=== PATIENT | female | born 1975 | race Two or more races ===

== ENCOUNTER 2019-01-11 09:55 | Emergency (ER) | payer BC ==
[~2019-01-11] VITALS: Ht 170.2 cm; Wt 97.5 kg
[2019-01-11 10:34] LABS: Basophils # (auto) 0 uL; Basophils % (auto) 0.1 % (0.0-2.0); Eosinophils # (auto) 0 uL; Hematocrit 36.2 % (36.0-46.0); Hemoglobin 12.1 g/dL (12.2-16.2); Lymphocytes # (auto) 0.4 uL; Lymphocytes % (auto) 4.4 % (10.0-50.0); Mean Corpuscular Hemoglobin 27.2 pg (28.0-32.0); Mean Corpuscular Hgb Conc. 33.4 g/dL (32.0-36.0); Mean Corpuscular Volume 81.6 fL (80.0-100.0); Monocytes # (auto) 0.5 uL; Monocytes % (auto) 6.1 % (0.0-12.0); Neutrophils # (auto) 7.1 uL; Neutrophils % (auto) 89.4 % (37.0-80.0); Platelet Count (auto) 264 10^3/uL (140-450); Red Blood Cells 4.44 10^6/uL (4.0-5.20); Red Cell Distribution Width 15.1 % (11.8-14.3)
[2019-01-11 10:45] LABS: Albumin 3.6 g/dL (3.4-5.0); Anion Gap 15 (5-15); Blood Urea Nitrogen 11 mg/dL (7-18); Calcium 9.6 mg/dL (8.5-10.1); Carbon Dioxide 21 mmol/L (21-32); Chloride 98 mmol/L (98-107); Glucose 335 mg/dL (74-106); Potassium 3.5 mmol/L (3.5-5.1); Sodium 134 mmol/L (136-145)
[2019-01-11 10:50] LABS: Urine Bacteria FEW /hpf (None Seen); Urine Blood 2+ /uL (Negative); Urine Hyaline Cast FEW /lpf (0 - 2); Urine Mucus FEW (None Seen); Urine Specific Gravity 1.028 (1.001-1.035); Urine WBC 127 /hpf (0 - 5)
[2019-01-11 10:53] LABS: Alanine Aminotransferase 20 U/L (13-56); Alkaline Phosphatase 89 U/L (45-117); Aspartate Aminotransferase 14 U/L (15-37); BUN/Creatinine Ratio 11.6; Bilirubin, Total 0.4 mg/dL (0.2-1.0); GFR African American 82 mL/min; GFR Non-African American 68 mL/min; Total Protein 9.2 g/dL (6.4-8.2)
[2019-01-11] MEDS ORDERED: cefTRIAXone 1GM/50ML D5W 50 ML IV ONE (13:00)
[2019-01-11] MEDS ORDERED: SODIUM CHLORIDE 0.9% 1,000 ML IV ONE ×2 (13:00→13:15)
[2019-01-11] MEDS ORDERED: KETOROLAC TROMETH 30 MG/ML 1ML VIAL IV ONE (13:00)
[2019-01-11] MEDS ORDERED: PROMETHAZINE HCL 25 MG/ML 1ML IV ONE (13:00)
[2019-01-11] MEDS ORDERED: FAMOTIDINE (10MG/ML) 2ML VL IV ONE (13:00)
[2019-01-11] MEDS ORDERED: ONDANSETRON HCL 4 MG/2 ML VIAL IV ONE (14:30)
[2019-01-11] MEDS ORDERED: InsuLIN REG 1unit/0.01ml Soln (100units/ml) IV ONE (14:45)
[2019-01-11] MEDS ORDERED: cloNIDine HCL 0.1 MG TAB PO ONE (14:45)
[2019-01-11] MEDS ORDERED: POTASSIUM CHL 20 Meq TABLET PO ONE (14:45)
[2019-01-11 16:37] VITALS: BP 194/97
== END 2019-01-11 16:53 | disposition left against medical advice (07) ==
LOC: ER 09:55
DX: K52.9 Noninfective gastroenteritis and colitis, unspecified (principal); N39.0 Urinary tract infection, site not specified; E11.65 Type 2 diabetes mellitus with hyperglycemia; I10 Essential (primary) hypertension; Z53.29 Procedure and treatment not carried out because of patient's decision for other reasons; Z88.2 Allergy status to sulfonamides
CPT/HCPCS: 36415; 80053; 81001; 82962; 84484; 85025; 96365; 96375; 99283; J0696; J1815; J1885; J2405; J2550; J3490; J7030

== ENCOUNTER 2019-01-12 23:36 | Inpatient (IN) | payer BC ==
[~2019-01-12] VITALS: Ht 170.2 cm; Wt 94.1 kg
[2019-01-13] VITALS (8 sets, daily range): BP systolic 118–187; BP diastolic 76–98
[2019-01-13] MEDS ORDERED: cloNIDine HCL 0.1 MG TAB PO ONE ×2 (00:45→02:45)
[2019-01-13] MEDS ORDERED: ONDANSETRON HCL 4 MG/2 ML VIAL IV ONE ×2 (02:45→06:00)
[2019-01-13] MEDS ORDERED: MECLIZINE HCL 25 MG TAB PO ONE (03:45)
[2019-01-13 04:37] LABS: Basophils # (auto) 0 uL; Basophils % (auto) 0.4 % (0.0-2.0); Eosinophils # (auto) 0 uL; Eosinophils % (auto) 0.1 % (0.0-7.0); Hematocrit 36.8 % (36.0-46.0); Hemoglobin 12.4 g/dL (12.2-16.2); Lymphocytes # (auto) 0.8 uL; Lymphocytes % (auto) 11.9 % (10.0-50.0); Mean Corpuscular Hemoglobin 27.2 pg (28.0-32.0); Mean Corpuscular Hgb Conc. 33.6 g/dL (32.0-36.0); Monocytes # (auto) 0.9 uL; Monocytes % (auto) 13.3 % (0.0-12.0); Neutrophils # (auto) 4.9 uL; Neutrophils % (auto) 74.3 % (37.0-80.0); Platelet Count (auto) 287 10^3/uL (140-450); Red Blood Cells 4.55 10^6/uL (4.0-5.20); Red Cell Distribution Width 14.7 % (11.8-14.3); White Blood Cell 6.5 10^3/uL (4.4-10.8)
[2019-01-13 04:56] LABS: Albumin 3.2 g/dL (3.4-5.0); Calcium 9.3 mg/dL (8.5-10.1); Potassium 3.5 mmol/L (3.5-5.1)
[2019-01-13 04:59] LABS: Bilirubin, Total 0.4 mg/dL (0.2-1.0); Total Protein 8.7 g/dL (6.4-8.2)
[2019-01-13] MEDS ORDERED: ENALAPRILAT 1.25 MG/ML-1ML VIAL IV ONE (05:45)
[2019-01-13] MEDS ORDERED: traMADol HCL 50 MG TAB PO PRN (06:30)
[2019-01-13] MEDS ORDERED: MORPHINE SULF INJ 2 MG/ML SYRINGE 1ML IV PRN (06:30)
[2019-01-13] MEDS ORDERED: DOCUSATE SOD 100 MG CAP PO PRN (06:30)
[2019-01-13] MEDS ORDERED: ACETAMINOPHEN 500 MG TAB PO PRN (06:30)
[2019-01-13] MEDS ORDERED: DEXTROSE (50%) 50ML SYRG IV PRN (06:30)
[2019-01-13 06:47] LABS: Cholesterol 171 mg/dL (< 200)
[2019-01-13 06:50] LABS: HDL Cholesterol 58 mg/dL (40-59); LDL Cholesterol 91 mg/dL (< 100); Triglycerides 124 mg/dL (< 150)
[2019-01-13] MEDS: InsuLIN REG 1unit/0.01ml Soln (100units/ml) SC SCH ×4 (07:04→21:22)
[2019-01-13] MEDS: ACCU-CHEK COMFORT CURVE STRIP VI SCH ×4 (07:05→21:22)
[2019-01-13 08:17] LABS: Urine Bacteria NONE SEEN /hpf (None Seen); Urine Blood 2+ /uL (Negative); Urine Hyaline Cast FEW /lpf (0 - 2); Urine Mucus FEW (None Seen); Urine Specific Gravity 1.015 (1.001-1.035); Urine WBC 13 /hpf (0 - 5)
--- NOTE | 2019-01-13 09:34 | NUR ---
0805 RECEIVED FROM ed VIA WHEELCHAIR, ALERT AND ORIENTED FOR UNCONTROLLED BP. ORIENTED TO UNIT, CALL LIGHT AND PLAN OF CARE DISCUSSED WITH PATIENT. CURRENTLY BP BETTER. 0930 SEEN AND EXAMINED BY DR DEY, INFORMED PATIENT OF DISCHARGE STATUS. WILL GIVE EDUCATIONAL MATERIAL ON DM AND HTN.
[2019-01-13] MEDS ORDERED: FAMOTIDINE 20 MG TAB PO SCH (10:00)
[2019-01-13] MEDS: ONDANSETRON HCL 4 MG/2 ML VIAL IV PRN (11:45)
[2019-01-13] MEDS: BENAZEPRIL HCL 10 MG TAB PO SCH ×3 (11:54→21:22)
[2019-01-13] MEDS: amLODIPine BESYLATE 5 MG TAB PO SCH (11:55)
--- NOTE | 2019-01-13 11:56 | NUR ---
1140 PATIENT VERY NAUSEOUS AFTER HAVING A BITE, NO EMESIS NOTED. 1145 ZOFRAN GIVEN.
--- NOTE | 2019-01-13 12:40 | NUR ---
EMESIS NOTED, ZOFRAN DID NOT HELP. DR DEY CALLED, LEFT VOICE MESSAGE
--- NOTE | 2019-01-13 13:38 | NUR ---
CALLED DR DEY, PER MD HOLD DISCHARGE, GI CONSULT TO DR SHANICE CLEARY DUE TO N/V, CHANGE PEPCID TO PROTONIX.
[2019-01-13] MEDS: SODIUM CHLORIDE 0.9% 1,000 ML IV SCH (14:32)
[2019-01-13] MEDS: PROMETHAZINE HCL 25 MG/ML 1ML IV PRN ×2 (14:35→18:29)
[2019-01-13 15:32] LABS: INR 0.99 (0.9-1.15)
[2019-01-13] MEDS: hydrALAZINE HCL 20 MG/ML VL IV PRN (17:03)
--- NOTE | 2019-01-13 19:35 | NUR ---
OPENING SHIFT NOTE RECEIVED REPORT FROM DAYSHIFT RN. PATIENT LYING IN BED WITH EYES CLOSED. NO S/S OF DISTRESS OR SOB. PATIENT COMPLAINS OF SEVERE NAUSEA DESPITE BEING ADMINISTERED PHENERGAN, REQUESTING NAUSEA MEDICATION, WILL MEDICATE PER MEDICATION ORDERS. PATIENT A/O X4, AMBULATORY. UPDATED PATIENT ON POC, VERBALIZED UNDERSTANDING. BED LOCKED IN LOW POSITION, CALL LIGHT WITHIN REACH. WILL CONTINUE TO MONITOR PATIENT Q1HR AND PRN.
[2019-01-13] MEDS ORDERED: TEMAZEPAM 15 MG CAP PO ONE (21:00)
[2019-01-14] VITALS (8 sets, daily range): BP systolic 139–166; BP diastolic 77–97
--- NOTE | 2019-01-14 00:05 | NUR ---
IV REMOVAL/INSERTION IV DC'd from right AC with catheter fully intact. Pressure dressing applied to site. Patient tolerated well. IV access obtained, via clean technique by inserting 24 gauge catheter at L Hand after 2 attempts. IV secured properly. No trauma to site. Patient tolerated well.
[2019-01-14] MEDS: SODIUM CHLORIDE 0.9% 1,000 ML IV SCH ×3 (00:16→21:01)
[2019-01-14] MEDS: PROMETHAZINE HCL 25 MG/ML 1ML IV PRN ×2 (00:17→09:21)
[2019-01-14] MEDS: hydrALAZINE HCL 20 MG/ML VL IV PRN ×3 (00:17→16:33)
[2019-01-14] MEDS: ONDANSETRON HCL 4 MG/2 ML VIAL IV PRN (05:25)
[2019-01-14 06:04] LABS: Calcium 9.1 mg/dL (8.5-10.1)
[2019-01-14 06:07] LABS: BUN/Creatinine Ratio 20.7
[2019-01-14] MEDS: InsuLIN REG 1unit/0.01ml Soln (100units/ml) SC SCH ×4 (06:27→21:11)
[2019-01-14] MEDS: ACCU-CHEK COMFORT CURVE STRIP VI SCH ×4 (06:27→21:10)
[2019-01-14] MEDS: PANTOPRAZOLE 40 MG TAB PO SCH (09:23)
[2019-01-14] MEDS: BENAZEPRIL HCL 10 MG TAB PO SCH ×2 (10:53→21:10)
[2019-01-14] MEDS: amLODIPine BESYLATE 5 MG TAB PO SCH (10:53)
[2019-01-14] MEDS: POTASSIUM CHL 20MEQ/100ML 100 ML IV SCH ×3 (10:54→15:21)
--- NOTE | 2019-01-14 16:10 | NUR ---
greenish emesis approximately 200 ml noted. remains nauseated , kept nothing by mouth.
[2019-01-14] MEDS ORDERED: SODIUM CHLORIDE 0.9% 500 ML IV ONE (18:00)
--- NOTE | 2019-01-14 18:26 | NUR ---
PATIENT HAS BEEN TACHY ALL DAY TODAY, ASYMPTOMATIC. RECEIVED 2 DOSES OF PRN HYDRALAZINE FOR SBP > 160. DR DEY FINALLY CALLED DUE TO HEART RATE NOT GOING DOWN. ORDER RECEIVED FOR 500 ML NS BOLUS, CARDIOLOGY CONSULT TO DR LEAL, 2D ECHO AND TRANSFER PATIENT TO TELEMETRY. BOLUS STARTED, PATIENT PLACED ON AUTOMOTIVE LIGHT MECHANIC, SINUS TACH NOTED. WILL CONTINUE TO MONITOR. SCHEDULED FOR EGD TOMORROW, WILL KEEP NPO TONIGHT.
--- NOTE | 2019-01-14 19:45 | NUR ---
OPENING SHIFT NOTE RECEIVED REPORT FROM DAYSHIFT RN. PATIENT LYING IN BED WITH EYES CLOSED. NO S/S OF DISTRESS OR SOB. NO PAIN NOTED OR REPORTED AT THIS TIME. PATIENT A/O X4, AMBULATORY. UPDATED PATIENT ON POC, VERBALIZED UNDERSTANDING. BED LOCKED IN LOW POSITION, CALL LIGHT WITHIN REACH. WILL CONTINUE TO MONITOR PATIENT Q1HR AND PRN.
[2019-01-15] MEDS: hydrALAZINE HCL 20 MG/ML VL IV PRN (04:35)
[2019-01-15 05:06] VITALS: BP 180/95
[2019-01-15] MEDS: SODIUM CHLORIDE 0.9% 1,000 ML IV SCH ×2 (05:53→16:58)
[2019-01-15] MEDS: ACCU-CHEK COMFORT CURVE STRIP VI SCH ×4 (06:21→21:47)
[2019-01-15] MEDS: InsuLIN REG 1unit/0.01ml Soln (100units/ml) SC SCH ×4 (06:22→21:47)
--- NOTE | 2019-01-15 07:30 | NUR ---
Opening Shift Note Assumed care of patient, awake and alert. No S/S of distress/SOB or pain on room air. Instructed on POC and to call for assist PRN, will continue to monitor for changes Q1hr and PRN. Bed in low and locked position, rails up x2, no-slip socks on. NPO status maintained.
[2019-01-15 08:10] LABS: Basophils # (auto) 0 uL; Eosinophils # (auto) 0 uL; Lymphocytes # (auto) 1.3 uL; Red Cell Distribution Width 15.1 % (11.8-14.3)
[2019-01-15 08:12] LABS: Basophils % (auto) 0.5 % (0.0-2.0); Eosinophils % (auto) 0.5 % (0.0-7.0); Hematocrit 35.7 % (36.0-46.0); Hemoglobin 11.6 g/dL (12.2-16.2); Lymphocytes % (auto) 17.5 % (10.0-50.0); Mean Corpuscular Hemoglobin 26.3 pg (28.0-32.0); Mean Corpuscular Hgb Conc. 32.5 g/dL (32.0-36.0); Monocytes # (auto) 0.7 uL; Monocytes % (auto) 9.7 % (0.0-12.0); Neutrophils # (auto) 5.3 uL; Neutrophils % (auto) 71.8 % (37.0-80.0); Platelet Count (auto) 290 10^3/uL (140-450); Red Blood Cells 4.41 10^6/uL (4.0-5.20); White Blood Cell 7.4 10^3/uL (4.4-10.8)
[2019-01-15 08:23] LABS: Albumin 2.7 g/dL (3.4-5.0); Calcium 8.5 mg/dL (8.5-10.1); Potassium 3.2 mmol/L (3.5-5.1)
[2019-01-15 08:29] LABS: BUN/Creatinine Ratio 16.4; Bilirubin, Total 0.3 mg/dL (0.2-1.0); Total Protein 7.3 g/dL (6.4-8.2)
[2019-01-15 09:00] VITALS: BP 146/74
--- NOTE | 2019-01-15 09:00 | NUR ---
DR DEY AT BEDSIDE NEW ORDERS ADDED
[2019-01-15] MEDS: amLODIPine BESYLATE 5 MG TAB PO SCH (09:37)
[2019-01-15] MEDS: POTASSIUM CHL 20MEQ/100ML 100 ML IV SCH ×2 (09:37→14:27)
[2019-01-15] MEDS: BENAZEPRIL HCL 10 MG TAB PO SCH ×2 (09:38→21:46)
[2019-01-15] MEDS: PANTOPRAZOLE 40 MG TAB PO SCH ×2 (10:00→21:46)
--- NOTE | 2019-01-15 10:00 | NUR ---
IV insertion IV access obtained, via clean sterile technique by inserting 22 gauge catheter at left wrist after 2 attempts. IV secured properly. No trauma to site. Patient tolerated well.
--- NOTE | 2019-01-15 11:20 | NUR ---
DR LEAL AT BEDSIDE CARDIOLOGY CONSULT COMPLETED, STARTED PATIENT ON A BETA MAURA, MAY CONTINUE WITH EGD, NO NEED TO WAIT FOR ECHO COMPLETION.
--- NOTE | 2019-01-15 11:34 | NUR ---
Nutrition Assessment Notes Please see attached link for complete assessment Estimated need ABW (76 kg): 9478-1630 kcal (23-25 kcal/kg BW), 76-83 gms protein (1.0-1.1 g/kg). Will continue to monitor pertinent labs and reassess nutrient need prn Addendum: 01/15/19 at [address] Amended: Links added.
--- NOTE | 2019-01-15 11:40 | NUR ---
PROGRAMMER BUSINESS AT BEDSIDE
--- NOTE | 2019-01-15 12:00 | NUR ---
PATIENT OFF UNIT FOR PROCEDURE EGD
[2019-01-15] MEDS ORDERED: SODIUM CHLORIDE LOCK 10 ML ONE (12:29)
[2019-01-15] MEDS ORDERED: LIDOCAINE VISCOUS 2% 15ML UD ONE (12:29)
[2019-01-15] MEDS ORDERED: diphenhdrAMINE HCL 50 MG/1 ML VL ONE (12:30)
[2019-01-15] MEDS: MIDAZOLAM HCL 5 MG/ML-1ML VIAL ONE ×2 (12:36→12:39)
[2019-01-15] MEDS: fentaNYL CITRATE 100 MCG/2 ML VL ONE ×2 (12:36→12:39)
[2019-01-15 13:00] VITALS: BP 145/90
--- NOTE | 2019-01-15 13:20 | NUR ---
PATIENT BACK ON UNIT PATIENT ALERT AND ORIENTED ON ROOM AIR, NO COMPLAINTS OF PAIN, NAUSEA, OR SOB. WILL CONTINUE TO MONITOR FOR CHANGES. DR CLEARY ADDED NEW DIET ORDERS, INSTRUCTED PATIENT TO PROCEED WITH CAUTION AND WAIT 30 MORE MINUTES PRIOR TO EATING. WITNESSED HER DRINKING WATER PRIOR TO EATING WITH NO DIFFICULTY. PER REPORT, PATIENT CLEARED FOR DISCHARGE, PRESCRIPTION IN CHART.
[2019-01-15 16:53] VITALS: BP 154/91
[2019-01-15] MEDS: ONDANSETRON HCL 4 MG/2 ML VIAL IV PRN (16:59)
[2019-01-15] MEDS: CARVEDILOL 3.125 MG TAB PO SCH (21:46)
[2019-01-15 22:39] VITALS: BP 166/88
--- NOTE | 2019-01-16 00:38 | NUR ---
Assumed care of patient from XAVIER Frias. Patient is alert and oriented x 4, reporting nausea but does not want either Zofran or Phenergan. Bed is in lowest position and locked. Call light within reach. Board updated. Tele box number matches monitor and leads are in correct placement. Will continue to monitor PRN.
[2019-01-16] MEDS: SODIUM CHLORIDE 0.9% 1,000 ML IV SCH ×2 (02:09→12:15)
--- NOTE | 2019-01-16 03:27 | NUR ---
Chris Myers because patient reports severe dizziness in addition to the nausea that she has been having. Patient has developed what she describes as a sever dizzy feeling both when she is walking and when she is laying down. This has prevented her from being able to sleep and she states that she has tried to wait for it to go away but it does not seem to be going away. Awaiting call back.
[2019-01-16 05:17] VITALS: BP 175/95
[2019-01-16] MEDS: hydrALAZINE HCL 20 MG/ML VL IV PRN ×2 (05:18→12:44)
[2019-01-16 05:28] LABS: Basophils # (auto) 0 uL; Basophils % (auto) 0.6 % (0.0-2.0); Eosinophils # (auto) 0.1 uL; Eosinophils % (auto) 1.1 % (0.0-7.0); Hematocrit 33.3 % (36.0-46.0); Lymphocytes # (auto) 1.3 uL; Lymphocytes % (auto) 20.7 % (10.0-50.0); Mean Corpuscular Hemoglobin 27.2 pg (28.0-32.0); Mean Corpuscular Volume 82.5 fL (80.0-100.0); Monocytes # (auto) 0.6 uL; Monocytes % (auto) 8.9 % (0.0-12.0); Neutrophils # (auto) 4.5 uL; Neutrophils % (auto) 68.7 % (37.0-80.0); Platelet Count (auto) 271 10^3/uL (140-450); Red Blood Cells 4.04 10^6/uL (4.0-5.20); Red Cell Distribution Width 14.9 % (11.8-14.3); White Blood Cell 6.5 10^3/uL (4.4-10.8)
[2019-01-16 05:43] LABS: BUN/Creatinine Ratio 10.1; Calcium 8.5 mg/dL (8.5-10.1); Magnesium 2.1 mg/dL (1.6-2.6); Potassium 3.5 mmol/L (3.5-5.1)
[2019-01-16] MEDS: ACCU-CHEK COMFORT CURVE STRIP VI SCH ×2 (06:23→11:42)
[2019-01-16] MEDS: InsuLIN REG 1unit/0.01ml Soln (100units/ml) SC SCH ×2 (06:23→12:02)
[2019-01-16 06:29] VITALS: BP 158/82
--- NOTE | 2019-01-16 06:48 | NUR ---
MD Myers called. Orders: 1) STAT Head Ct, 2) Neurology consult with MD Madison. Orders repeated, verified, and placed.
--- NOTE | 2019-01-16 07:30 | NUR ---
Opening Shift Note Assuming care of patient at this time. Patient is awake and alert. Patient is complaining of nausea. Patient shows no signs or symptoms of distress or shortness of breath. Bed is locked and lowered with side rails up x2. Instructed patient on the plan of care for today and to call for assistance as needed. Call light within reach. Will continue to round hourly and as needed.
[2019-01-16 08:29] VITALS: BP 179/86
--- NOTE | 2019-01-16 09:00 | NUR ---
at bedside Dr. Myers at bedside discussing plan of care for today. If patient tolerates diet, then she will be discharged according to orders.
[2019-01-16] MEDS: BENAZEPRIL HCL 10 MG TAB PO SCH (09:17)
[2019-01-16] MEDS: CARVEDILOL 3.125 MG TAB PO SCH (09:18)
[2019-01-16] MEDS: PANTOPRAZOLE 40 MG TAB PO SCH (09:18)
[2019-01-16] MEDS: amLODIPine BESYLATE 5 MG TAB PO SCH (09:18)
--- NOTE | 2019-01-16 10:50 | NUR ---
Re: Tolerating Patient has tolerated irma crackers with no nausea or vomiting.
--- NOTE | 2019-01-16 11:41 | NUR ---
Chicken Broth Gave patient chicken broth at this time. Will assess for tolerance upon completion.
--- NOTE | 2019-01-16 11:59 | NUR ---
Beef Broth Patient did not like the chicken broth. Gave patient beef broth at this time. Will assess for tolerance upon completion.
[2019-01-16 12:16] VITALS: BP 169/93
[2019-01-16 12:26] VITALS: BP 169/93
--- NOTE | 2019-01-16 12:45 | NUR ---
Diet Patient has tolerated beef broth with no nausea and vomiting. Patient was also able to eat a small portion, about 20%, of her tray with no issues. Will discharge according doctor's orders.
[2019-01-16 13:28] VITALS: BP 155/89
--- NOTE | 2019-01-16 13:40 | NUR ---
Discharge Discharge instructions given as ordered. Encourage to follow up with PMD as instructed. All questions and concerns addressed. Patient verbalized understanding. Medication reconciliation form completed and copy given to patient. IVs removed with catheter intact, pressure dressing applied. Telemetry unit returned to ICU. Patient refused wheelchair, insisted on ambulating with all personal belongings, accompanied by sister. Educated patient on using wheelchair upon discharge. Patient continued to refuse. Sister states, "I will hold unto her." No distress noted at time of departure.
== END 2019-01-16 13:40 | disposition home or self-care (01) | DRG 392 ==
LOC: ER 23:39 → OVERFLOW 23:40 → MERGE 23:40 → CENTRAL 01-13 08:09 → TELE-CENTR 01-14 18:16
PROVIDERS: ADMIT Nurse Practitioner Acute Care; ATTEND Internal Medicine
PROC: 0DB68ZX Excision of Stomach, Via Natural or Artificial Opening Endoscopic, Diagnostic (ICD-10-PCS; principal; 2019-01-15 12:34)
DX: K29.70 Gastritis, unspecified, without bleeding (principal); N39.0 Urinary tract infection, site not specified; I16.1 Hypertensive emergency; E87.1 Hypo-osmolality and hyponatremia; E44.1 Mild protein-calorie malnutrition; F17.210 Nicotine dependence, cigarettes, uncomplicated; E66.9 Obesity, unspecified; I10 Essential (primary) hypertension; E87.6 Hypokalemia; R31.29 Other microscopic hematuria; K44.9 Diaphragmatic hernia without obstruction or gangrene; K22.2 Esophageal obstruction; K20.9 Esophagitis, unspecified; Z79.84 Long term (current) use of oral hypoglycemic drugs; Z68.32 Body mass index [BMI] 32.0-32.9, adult; Z79.899 Other long term (current) drug therapy; Z71.6 Tobacco abuse counseling
CPT/HCPCS: 36415; 43239; 70450; 76705; 80048; 80053; 80061; 81001; 82962; 83036; 83735; 84443; 84702; 85025; 85610; 93306; 96361; 96374; 96375; G0378; J1815; J2250; J2405; J3480